=== PATIENT | male | born 1950 ===

== ENCOUNTER 2018-04-07 16:23 | Outpatient (REF) | payer MEDICARE, SELFPAY ==
[2018-04-07 19:36] LABS: HCT 47.4 % (40.0-50.0); HGB 15.7 g/dL (13.5-17.5); Mean Corp. HGB Concentration 33.1 g/dL (32.0-36.0); Mean Corpuscular Hemoglobin 31.5 pg (27.0-33.0); Mean Corpuscular Volume 95.2 fL (80-95); Mean Platelet Volume 12.4 fL (8.0-11.0); Platelet Count 280 x1000/uL (130-400); RBC 4.98 m/cumm (4.50-6.00); RBC Distribution Width 13.7 % (11.8-14.1); White Blood Cell Count 9.58 k/cumm (4.4-10.8)
[2018-04-07 19:50] LABS: ALT 30 U/L (12-78); AST 26 U/L (15-37); Albumin 4.1 g/dL (3.4-5.0); Alkaline Phosphatase 96 U/L (46-116); Anion Gap 9.4 mmol/L (3-11); BUN 10 mg/dL (7-18); Bilirubin, Total 0.6 mg/dL (0.2-1.0); CO2 29.6 mmol/L (21.0-32.0); CREATININE 0.77 mg/dL (0.70-1.30); Calcium 8.8 mg/dL (8.5-10.1); Chloride 102 mmol/L (98-107); Glucose 103 mg/dL (70-100); Potassium 4.3 mmol/L (3.5-5.1); Sodium 141 mmol/L (136-145); TSH 2.24 uIU/mL (0.358-3.74); Total Protein 7.6 g/dL (6.4-8.2)
== END 2018-04-07 16:43 ==
LOC: NCHCN 16:23
PROVIDERS: PCP Internal Medicine; Visit Provider Internal Medicine
DX: I10 Essential (primary) hypertension (principal); J44.9 Chronic obstructive pulmonary disease, unspecified; F17.210 Nicotine dependence, cigarettes, uncomplicated
CPT/HCPCS: 80053; 85027; 84443

== ENCOUNTER 2022-08-25 19:04 | Outpatient (REF) | payer MEDICARE, SELFPAY ==
[2022-08-25 20:50] LABS: Anion Gap 5.1 mmol/L (3-11); BUN 20 mg/dL (7-18); CO2 28.9 mmol/L (21.0-32.0); CREATININE 0.9 mg/dL (0.70-1.30); Calculated LDL 139 mg/dL (<100); Chloride 106 mmol/L (98-107); Cholesterol 235 mg/dL (<200); Estimated GFR 90.74 (mL/min/1.73m2); Glucose 108 mg/dL (74-106); HDL Cholesterol 65 mg/dL (40-60); Potassium 4.5 mmol/L (3.5-5.1); Sodium 140 mmol/L (136-145); Triglyceride 159 mg/dL (<150)
== END 2022-08-25 19:05 | disposition home or self-care (01) ==
LOC: NCHCN 19:04
PROVIDERS: PCP Internal Medicine; Visit Provider Internal Medicine
DX: Z00.00 Encounter for general adult medical examination without abnormal findings (principal); I10 Essential (primary) hypertension; R55 Syncope and collapse; J44.9 Chronic obstructive pulmonary disease, unspecified
CPT/HCPCS: 80048; 80061; 83036

== ENCOUNTER 2024-06-29 19:58 | Outpatient (REF) | payer MEDICARE, SELFPAY ==
[2024-06-29 19:17] LABS: HCT 43.1 % (40.0-50.0); HGB 14.5 g/dL (13.5-17.5); MCH 30.6 pg (27.0-33.0); MCHC 33.6 % (32.0-36.0); MCV 91 fL (80-95); MPV 11.1 fL (8.0-11.0); Platelet Count 261 10^3/uL (130-400); RBC 4.74 10^6/uL (4.36-5.78); RDW 12.5 % (11.8-14.1); RDW-SD 41.2 fL; WBC 7.34 10^3/uL (4.4-10.8)
[2024-06-29 19:40] LABS: Anion Gap 7.7 mmol/L (3-11); BUN 15 mg/dL (7-18); CO2 29.3 mmol/L (21.0-32.0); CREATININE 0.8 mg/dL (0.70-1.30); Chloride 108 mmol/L (98-107); Estimated GFR 92.87 (mL/min/1.73m2); Glucose 97 mg/dL (74-106); Potassium 3.8 mmol/L (3.5-5.1); Sodium 145 mmol/L (136-145); Troponin I 6 ng/L (<or=76)
== END 2024-06-29 19:59 | disposition home or self-care (01) ==
LOC: NCHCN 19:58
PROVIDERS: PCP Internal Medicine; Visit Provider Internal Medicine
DX: I10 Essential (primary) hypertension (principal)
CPT/HCPCS: 80048; 85027; 84484